=== PATIENT | female | born 1965 | race Caucasian/White ===

== ENCOUNTER → 2018-03-25 | Outpatient (CLI) | payer OTHER ==
--- NOTE | 2018-03-26 10:32 | MM ---
Reason for exam: screening (asymptomatic). Last mammogram was performed 2 years and 9 months ago. History: Patient is postmenopausal and history of other cancer. Family history of breast cancer in 2 maternal aunts at age 50. Physical Findings: A clinical breast exam by your physician is recommended on an annual basis and results should be correlated with mammographic findings. MG Screening Mammo w CAD Bilateral CC and MLO view(s) were taken. Prior study comparison: June 30, 2015, bilateral MG screening mammo w CAD. June 26, 2014, bilateral MG screening mammo w CAD. The breast tissue is heterogeneously dense. This may lower the sensitivity of mammography. No suspicious abnormality. No significant changes when compared with prior studies. ASSESSMENT: Negative, BI-RAD 1 RECOMMENDATION: Routine screening mammogram of both breasts in 1 year.
== END | disposition home or self-care (01) ==
LOC: RADMAMWWP 13:44
PROVIDERS: ATTEND Family Medicine
DX: Z12.31 Encounter for screening mammogram for malignant neoplasm of breast (principal)
CPT/HCPCS: 77067

== ENCOUNTER → 2018-05-03 | Day surgery (SDC) | payer OTHER ==
[~2018-05-03] MED LIST: LACTATED RINGERS 1,000 ML IV SCH; LIDOCAINE 1% 20 ML VIAL (10MG/ML) FOR IV START INTRADERMA ONE; PROPOFOL 10 MG/ML 20 ML VIAL IV ONE
[2018-05-03 09:17] VITALS: RESP 18; TEMP 97.7
--- NOTE | 2018-05-03 09:55 | P.GSHP ---
History of Present Illness H&P Date: 05/03/18 Chief Complaint: Colon cancer screening Patient here today for colonoscopy. She has not had 1 previously. No bowel related complaints. No family history colon cancer. Past Medical History Past Medical History: Cancer, GERD/Reflux, Hypertension, Osteoarthritis (OA) Additional Past Medical History / Comment(s): urinary incontinence, hx. uterine cancer, hx h-pylori, has hiatal hernia History of Any Multi-Drug Resistant Organisms: None Reported Past Surgical History: Bariatric Surgery, Cholecystectomy, Hysterectomy, Tonsillectomy, Tubal Ligation Additional Past Surgical History / Comment(s): recent EGD, bariatric sleeve 2014 Past Anesthesia/Blood Transfusion Reactions: No Reported Reaction Past Psychological History: Anxiety Smoking Status: Former smoker Past Alcohol Use History: Occasional Additional Past Alcohol Use History / Comment(s): quit smoking 2012, had smoked since age of 13 Past Drug Use History: None Reported - Past Family History Father Family Medical History: Congestive Heart Failure (CHF), Coronary Artery Disease (CAD), Hypertension Additional Family Medical History / Comment(s): from heart attack Mother Family Medical History: Hypertension Medications and Allergies Home Medications Medication Instructions Recorded Confirmed Type Hydrochlorothiazide 25 mg PO DAILY 04/29/14 05/03/18 History Multivitamins, Thera [Multivitamin] 1 tab PO DAILY 04/29/14 05/03/18 History PARoxetine HCL [Paroxetine HCl] 20 mg PO DAILY 04/29/14 05/03/18 History Potassium Chloride 20 meq PO DAILY 04/29/14 05/03/18 History amLODIPine BESYLATE [Amlodipine 10 mg PO DAILY 04/29/14 05/03/18 History Besylate] Omeprazole [PriLOSEC] 20 mg PO AC-BRKFST #90 cap 10/23/14 05/03/18 Rx Calcium Citrate 250 mg PO BID 12/23/14 05/03/18 History Vitamin B Complex 1 each PO DAILY 02/11/15 05/03/18 History Allergies Allergy/AdvReac Type Severity Reaction Status Date / Time No Known Allergies Allergy Verified 02/29/16 15:04 Surgical - Exam Vital Signs Temp Pulse Resp BP Pulse Ox 97.7 F 72 18 140/79 97 05/03/18 09:16 05/03/18 09:16 05/03/18 09:16 05/03/18 09:16 05/03/18 09:16 Physical exam: General: Well-developed, well-nourished HEENT: Normocephalic, sclerae nonicteric Abdomen: Nontender, nondistended Extremities: No edema Neuro: Alert and oriented Assessment and Plan (1) Colon cancer screening Narrative/Plan: Will proceed with colonoscopy at this time. Current Visit: Yes Status: Acute Code(s): Z12.11 - ENCOUNTER FOR SCREENING FOR MALIGNANT NEOPLASM OF COLON SNOMED Code(s): 302708995
--- NOTE | 2018-05-03 10:12 | P.PCN ---
Date of Procedure: 05/03/18 Procedure(s) Performed: PREOPERATIVE DIAGNOSIS: Colon cancer screening POSTOPERATIVE DIAGNOSIS: Sigmoid colon polyp, diverticulosis PROCEDURE: Colonoscopy with snare polypectomy ANESTHESIA: MAC SURGEON: Sekou Rice M.D. SPECIMENS: Sigmoid colon polyp ENDOSCOPIC PROCEDURE: The patient was placed on the endoscopy table in the left decubitus position. The Olympus colonoscope was inserted into the anus and passed under direct visualization to the base of the cecum. The appendiceal orifice was visualized. From that point the scope was slowly withdrawn inspecting all surfaces carefully. There were no neoplastic inflammatory or polypoid lesions throughout the cecum, ascending, transverse, and descending colon. In the sigmoid a small polyp was identified and removed using the snare with cautery technique. The remainder of the sigmoid and rectum appeared rectum. There is mild left-sided diverticulosis. Small hemorrhoids seen in the perianal region. The patient was taken to the recovery room in stable condition per anesthesia guidelines. RECOMMENDATIONS: Await biopsy results.
[2018-05-03 10:22] VITALS: BP 98/63
[2018-05-03 10:44] VITALS: PULSE 62
== END | disposition home or self-care (01) ==
LOC: ORWHC2ENDO 08:53
PROVIDERS: ATTEND Surgery
DX: Z12.11 Encounter for screening for malignant neoplasm of colon (principal); K63.5 Polyp of colon; K57.30 Diverticulosis of large intestine without perforation or abscess without bleeding; K64.9 Unspecified hemorrhoids; K21.9 Gastro-esophageal reflux disease without esophagitis; I10 Essential (primary) hypertension; F41.9 Anxiety disorder, unspecified; F39 Unspecified mood [affective] disorder; M19.90 Unspecified osteoarthritis, unspecified site; Z85.42 Personal history of malignant neoplasm of other parts of uterus; Z87.891 Personal history of nicotine dependence; Z82.49 Family history of ischemic heart disease and other diseases of the circulatory system; Z79.899 Other long term (current) drug therapy; Z90.3 Acquired absence of stomach [part of]
CPT/HCPCS: 88305; 45385; J2704

== ENCOUNTER → 2022-10-11 | Outpatient (CLI) | payer OTHER ==
--- NOTE | 2022-10-11 15:23 | XR ---
EXAMINATION TYPE: XR knee complete bilateral DATE OF EXAM: 10/11/2022 CLINICAL HISTORY: pain TECHNIQUE: Three views of the left knee are obtained. COMPARISON: None. FINDINGS: Severe degenerative joint space narrowing medial tibiofemoral joint space. There are subcho ndral sclerosis. Intercondylar spur formation noted as well as spurring about the margins of the femo ral condyles and tibial plateaus. There is evidence of severe narrowing of the patellofemoral joint s pace with associated spur formation seen as well. IMPRESSION: There is no acute fracture or dislocation ICD 10 NO FRACTURE, INITIAL EVALUATION
[2022-10-12 02:41] LABS: ALT 34 U/L (8-44); AST 28 U/L (13-35); Albumin 4.4 d/dL (3.8-4.9); Albumin/Globulin Ratio 1.57 Ratio (1.60-3.17); Alkaline Phosphatase 88 U/L (41-126); Blood Urea Nitrogen 17.1 mg/dL (9.0-27.0); Calcium 9.5 mg/dL (8.7-10.3); Carbon Dioxide 24.9 mmol/L (21.6-31.8); Chloride 105 mmol/L (96-109); Chol/HDL Ratio 2.29 Ratio; Globulin 2.8 d/dL (1.6-3.3); Glucose 94 mg/dL (70-110); LDL Cholesterol,Calculated 64.6 mg/dL (0.0-131.0); Potassium 4.8 mmol/L (3.5-5.5); Sodium 141 mmol/L (135-145); T4, Free (Free Thyroxine) 1.31 ng/dL (0.80-1.80); Total Bilirubin 0.6 mg/dL (0.3-1.2); Total Protein 7.2 d/dL (6.2-8.2)
--- NOTE | 2022-10-12 07:56 | MM ---
Reason for Exam: Screening (asymptomatic). Last mammogram was performed 4 year(s) and 7 month(s) ago. Patient History: Menarche at age 10. First Full-Term at age 19. Left ovary removed at age 47. Right ovary removed at age 47. Hysterectomy at age 47. Postmenopausal. Other cancer. Maternal aunt had breast cancer, age 50. Maternal aunt had breast cancer, age 50. Risk Values: Taisha 5 year model risk: 1.2%. NCI Lifetime model risk: 6.9%. Prior Study Comparison: 06/26/2014 Bilateral Screening Mammogram, [facility]. 06/30/2015 Bilateral Screening Mammogram, [facility]. 03/25/2018 Bilateral Screening Mammogram, [facility]. Tissue Density: There are scattered fibroglandular densities. Findings: Analyzed By CAD. There is no suspicious group of microcalcifications within either breast. No new suspicious masses within the left breast. There are 4 asymmetries demonstrated within the right breast at middle to posterior depth in the central and lateral aspect only on the cc view. Overall Assessment: Incomplete: need additional imaging evaluation, BI-RAD 0 Management: Diagnostic Mammogram of the right breast. A clinical breast exam by your physician is recommended on an annual basis and results should be correlated with mammographic findings. [facility] will attempt to contact patient to return for supplemental views and ultrasound if indicated. Note on Taisha scores and lifetime risk: 1. A Taisha score greater than 3% is considered moderate risk. If this is the case, consider specialist referral to assess eligibility for a risk reducing agent. If overall lifetime risk for the development of breast cancer is 20% or higher, the patient may qualify for future screening with alternating mammogram and breast MRI. Electronically signed and approved by: Lavon Noel D.O.
== END | disposition home or self-care (01) ==
LOC: RADMAMWWP 14:06
PROVIDERS: ATTEND Family Medicine
DX: Z12.31 Encounter for screening mammogram for malignant neoplasm of breast (principal); M25.561 Pain in right knee; M25.562 Pain in left knee; E78.2 Mixed hyperlipidemia; I10 Essential (primary) hypertension; E66.01 Morbid (severe) obesity due to excess calories; G89.29 Other chronic pain; Z78.0 Asymptomatic menopausal state; Z80.3 Family history of malignant neoplasm of breast
CPT/HCPCS: 77067; 80053; 80061; 82306; 83036; 84439; 84443

== ENCOUNTER → 2022-10-17 | Outpatient (CLI) | payer OTHER ==
--- NOTE | 2022-10-17 14:29 | USB ---
Reason for Exam: Additional evaluation requested from abnormal screening. Patient History: Menarche at age 10. First Full-Term at age 19. Left ovary removed at age 47. Right ovary removed at age 47. Hysterectomy at age 47. Postmenopausal. Maternal aunt had breast cancer, age 50. Maternal aunt had breast cancer, age 50. Risk Values: Taisha 5 year model risk: 1.2%. NCI Lifetime model risk: 6.9%. Technique: Method: Targeted. Prior Study Comparison: 06/30/2015 Bilateral Screening Mammogram, [facility]. 03/25/2018 Bilateral Screening Mammogram, [facility]. 10/11/2022 Bilateral MG screening mammo w CAD, [facility]. Findings: The lower outer quadrant of the right breast, the axilla of the right breast and the retroareolar of the right breast were scanned. Imaged: Ultrasound imaging of: All 4 quadrants, the retroareolar region and axilla. No suspicious masses visualized there is a 4 x 3 x 5 mm probable cyst at 7:00 2 cm from nipple. No evidence for mass. Overall Assessment: Probably benign, BI-RAD 3 Management: Diagnostic Breast Ultrasound of the right breast in 6 months. 6 month follow-up for stability. A clinical breast exam by your physician is recommended on an annual basis and results should be correlated with mammographic findings. This exam should not preclude additional follow-up of suspicious palpable abnormalities. Results were given to the patient verbally at the time of exam. Electronically signed and approved by: Rohit Velazquez DO
--- NOTE | 2022-10-17 14:29 | MM ---
Reason for Exam: Additional evaluation requested from abnormal screening. Last screening mammogram was performed less than 1 month ago. Patient History: Menarche at age 10. First Full-Term at age 19. Left ovary removed at age 47. Right ovary removed at age 47. Hysterectomy at age 47. Postmenopausal. Maternal aunt had breast cancer, age 50. Maternal aunt had breast cancer, age 50. Risk Values: Taisha 5 year model risk: 1.2%. NCI Lifetime model risk: 6.9%. Prior Study Comparison: 06/14/2012 Bilateral Diagnostic Mammogram, [facility]. 06/26/2014 Bilateral Screening Mammogram, [facility]. 03/25/2018 Bilateral Screening Mammogram, [facility]. 10/11/2022 Bilateral MG screening mammo w CAD, [facility]. Tissue Density: Right: There are scattered fibroglandular densities. Findings: Analyzed By CAD. Scattered nodular-like densities are redemonstrated in the right breast. They best appreciated on cc imaging. These are felt to be within the inferior outer quadrant. No calcifications or distortions. Overall Assessment: Incomplete: need additional imaging evaluation, BI-RAD 0 Management: Diagnostic Breast Ultrasound of the right breast. Results were given to the patient verbally at the time of exam. Patient should continue monthly self-breast exams. A clinical breast exam by your physician is recommended on an annual basis. This exam should not preclude additional follow-up of suspicious palpable abnormalities. Note on Taisha scores and lifetime risk: 1. A Taisha score greater than 3% is considered moderate risk. If this is the case, consider specialist referral to assess eligibility for a risk reducing agent. 2. If overall lifetime risk for the development of breast cancer is 20% or higher, the patient may qualify for future screening with alternating mammogram and breast MRI. Electronically signed and approved by: Rohit Velazquez DO
== END | disposition home or self-care (01) ==
LOC: RADMAMWWP 13:29
PROVIDERS: ATTEND Family Medicine
DX: R92.8 Other abnormal and inconclusive findings on diagnostic imaging of breast (principal); Z78.0 Asymptomatic menopausal state; Z80.3 Family history of malignant neoplasm of breast
CPT/HCPCS: 77065; 76642; G0279; 77061

== ENCOUNTER → 2023-05-03 | Outpatient (CLI) | payer OTHER ==
--- NOTE | 2023-05-03 13:06 | USB ---
Reason for Exam: Follow-up at short interval from prior study. Patient History: Menarche at age 10. First Full-Term at age 19. Left ovary removed at age 47. Right ovary removed at age 47. Hysterectomy at age 47. Postmenopausal. Maternal aunt had breast cancer, age 50. Maternal aunt had breast cancer, age 50. Risk Values: Taisha 5 year model risk: 1.2%. NCI Lifetime model risk: 6.7%. Prior Study Comparison: 03/25/2018 Bilateral Screening Mammogram, [facility]. 10/11/2022 Bilateral MG screening mammo w CAD, [facility]. 10/17/2022 Right US breast workup limited RT, [facility]. 10/17/2022 Right MG 3D work up w/cad RT, [facility]. Findings: The lower outer quadrant of the right breast, the axilla of the right breast and the retroareolar of the right breast were scanned. Targeted ultrasound right breast 6:00 to 8:00 position including the subareolar region and axilla. There is a tiny 3 mm cyst at the 7:00 position, 2 cm from the nipple. Decreasing size from prior exam. Short interval follow-up mammogram recommended. Overall Assessment: Probably benign, BI-RAD 3 Management: Diagnostic Mammogram of both breasts in 6 months. (Total one-year follow-up right breast and annual exam of the left breast). A clinical breast exam by your physician is recommended on an annual basis and results should be correlated with mammographic findings. This exam should not preclude additional follow-up of suspicious palpable abnormalities. Results were given to the patient verbally at the time of exam. Electronically signed and approved by: Brandy Tovar M.D. Radiologist
== END | disposition home or self-care (01) ==
LOC: RADUSWWP 12:09
PROVIDERS: ATTEND Family Medicine
DX: R92.8 Other abnormal and inconclusive findings on diagnostic imaging of breast (principal); Z90.710 Acquired absence of both cervix and uterus; Z78.0 Asymptomatic menopausal state; Z80.3 Family history of malignant neoplasm of breast

== ENCOUNTER → 2023-09-14 | Outpatient (CLI) | payer OTHER ==
--- NOTE | 2023-09-14 20:40 | CTL ---
EXAMINATION TYPE: CT Low Dose Lung DATE OF EXAM: 09/14/2023 6:55 PM CLINICAL INDICATION:Female, 57 years old with history of Z12.2 lung cancer scrn, Z87.891 former smoke r; Former smoker x 7 years. 1 ppd x 35 years. , history of tobacco use. COMPARISON: None. TECHNIQUE: Multiple axial non-contrast scans were obtained from approximately the lung apices through the upper abdomen. Coronal and sagittal reformatted images were obtained. Low dose technique was uti lized. CT DLP: 149.1 mGycm, Automated exposure control for dose reduction was used. CT Contrast: Contrast used: None Oral contrast used: None FINDINGS: ======== Lack of intravenous contrast and low dose technique limits the evaluation of the vascular and soft ti ssue structures. LUNGS: No evidence of pulmonary fibrosis. No evidence of focal consolidation, pneumothorax or pleural effusion. Centrilobular emphysema changes. Nodules: RUL: None. RML: None. RLL: None. GOPI: None. LLL: None. AIRWAY: Patent and unremarkable. HEART: Size within normal limits. MEDIASTINUM: No gross evidence of adenopathy. VASCULATURE: No aortic aneurysm. MUSCULOSKELETAL: Mild disc degeneration changes are present throughout the thoracolumbar spine. SOFT TISSUES/LYMPH NODES: Unremarkable. LOWER NECK: No significant findings. UPPER ABDOMEN: Postsurgical changes to the gastric lumen. The gallbladder surgically absent. IMPRESSION: 1. No clinically significant pulmonary nodules. 2. Mild emphysema. CT LUNG RAD AND CT CHEST RECOMMENDATION: Lung-Rad 1 Negative: Continue annual screening with LDCT in 12 months. S Modifier (other clinically significant findings): None Recommend smoking cessation (if current smoker), or continuation of smoking cessation (if prior smoke r). Annual screening for lung cancer with low-dose computed tomography is recommended in adults ages 55 to 77 years who have a 30 pack-year smoking history and currently smoke or have quit within the pa st 15 years. Screening should be discontinued once a person has not smoked for 15 years or develops a health problem that substantially limits life expectancy or the ability or willingness to have curat bravo lung surgery. Lung rads 2021 [email or web address]
== END | disposition home or self-care (01) ==
LOC: RADCTMAIN 18:29
PROVIDERS: ATTEND Family Medicine
DX: Z12.2 Encounter for screening for malignant neoplasm of respiratory organs (principal); J43.9 Emphysema, unspecified; Z87.891 Personal history of nicotine dependence
CPT/HCPCS: 71271